=== PATIENT | female | born 1990 | race American Indian/Alaskan Native ===

== ENCOUNTER 2016-08-28 15:20 | Emergency (ER) | payer OTHER ==
[2016-08-28 15:33] VITALS: BP 122/92
[2016-08-28] MEDS ORDERED: Sodium Chloride 0.9% 10 ML Syringe FLUSH PRN (16:13)
[2016-08-28] MEDS ORDERED: Ondansetron 4 MG/2 ML SDV IVPUSH ONE (16:14)
[2016-08-28] MEDS ORDERED: Sodium Chloride 0.9% 1,000 ML IV ONE (16:14)
--- NOTE | 2016-08-28 16:26 | EDM.PDOC ---
<Rajwinder Hidalgo - Last Filed: 08/28/16 19:55> ED HPI GENERAL MEDICAL PROBLEM - General Chief Complaint: Gastrointestinal Problem Stated Complaint: NAUSEA AND VOMITING X 10 DAYS Time Seen by Provider: 08/28/16 16:00 Source of Information: Reports: Patient History Limitations: Reports: No Limitations - History of Present Illness INITIAL COMMENTS - FREE TEXT/NARRATIVE: Jocy is a 26 year old female who presents today with complaints of nausea and vomiting X 10 days. Her symptoms have been gradually getting worse. She has not been able to keep anything down for the past 6 days. When her symptoms began, she developed a cough with productive sputum. These symptoms have been improving gradually, but the nausea and vomiting is continuous. She has dizziness with position changes. Associated symptoms include chills and shortness of breath. Denies fever, night sweats, diarrhea. She has not had any recent travel or close contacts who have been sick. She reports her last menstrual period was "maybe sometime in July" but unsure of the exact date. - Related Data Allergies Allergy/AdvReac Type Severity Reaction Status Date / Time No Known Allergies Allergy Verified 08/28/16 15:32 Home Meds: Home Meds Acetaminophen/HYDROcodone [[place] 325-5 MG] 1 tab PO Q8H 08/28/16 [History] Cyclobenzaprine [Flexeril] 5 mg PO TID 08/28/16 [History] Doxylamine/Pyridoxine HCl [Diclegis Dr 10-10 mg Tablet] 1 each PO ASDIRECTED # 30 tablet. 08/28/16 [Rx] Ferrous Sulfate [Iron] 325 mg PO DAILY 08/28/16 [History] Gabapentin [Neurontin] 600 mg PO TID 08/28/16 [History] ED ROS GENERAL - Review of Systems Review Of Systems: See Below Constitutional: Reports: Chills, Weakness. Denies: Fever HEENT: Reports: No Symptoms Respiratory: Reports: Shortness of Breath Cardiovascular: Denies: Lightheadedness GI/Abdominal: Reports: Abdominal Pain, Mucous in Stool. Denies: Bloody Stool, Diarrhea, Hematemesis, Hematochezia : Denies: Dysuria, Flank Pain, Frequency, Urgency Musculoskeletal: Denies: Neck Pain Skin: Reports: No Symptoms Neurological: Reports: Dizziness (dizziness with position changes ) ED EXAM, GI/ABD - Physical Exam Exam Limited By: No Limitations General Appearance: Alert Ears: Normal TMs Throat/Mouth: Normal Oropharynx Head: Normocephalic Neck: Supple Respiratory/Chest: Lungs Clear, Normal Breath Sounds Cardiovascular: Regular Rate, Rhythm, No Edema GI/Abdominal: Tenderness (tenderness upon palpation to mid-upper gastric area ) Neurological: Alert, Oriented, CN II-XII Intact Psychiatric: Normal Affect Skin Exam: Intact, Diaphoretic Lymphatic: No Adenopathy Course - Vital Signs Last Recorded V/S: Last Vital Signs Temp 36.6 C 08/28/16 15:30 Pulse 74 08/28/16 15:30 Resp 19 08/28/16 15:30 BP 122/92 H 08/28/16 15:30 Pulse Ox 99 08/28/16 15:30 - Orders/Labs/Meds Orders: Active Orders 24 hr Category Date Time Status EKG Documentation Completion [RC] STAT Care 08/28/16 16:13 Active Orthostatic Vital Signs [RC] ASDIRECTED Care 08/28/16 16:37 Active Peripheral IV Care [RC] . DIRECTED Care 08/28/16 16:14 Active OB Transvaginal [US] Stat Exams 08/28/16 17:50 Taken Peripheral IV Insertion Adult [OM.PC] Routine Oth 08/28/16 16:13 Ordered Labs: Laboratory Tests 08/28/16 08/28/16 08/28/16 Range/Units 15:54 15:54 15:54 WBC 9.90 (3.98-10.04) K/mm3 RBC 4.86 (3.98-5.22) M/mm3 Hgb 13.1 (11.2-15.7) gm/L Hct 38.9 (34.1-44.9) % MCV 80.0 (79.4-94.8) fl MCH 27.0 (25.6-32.2) pg MCHC 33.7 (32.2-35.5) g/dl RDW Std Deviation 40.4 (36.4-46.3) fL Plt Count 365 (182-369) K/mm3 MPV 9.9 (9.4-12.3) fl Neutrophils % (Manual) 92 H (40-60) % Band Neutrophils % 0 (0-10) % Lymphocytes % (Manual) 5 L (20-40) % Atypical Lymphs % 0 % Monocytes % (Manual) 3 (2-10) % Eosinophils % (Manual) 0 L (0.7-5.8) % Basophils % (Manual) 0 L (0.1-1.2) Platelet Estimate Adequate RBC Morph Comment Normal Sodium 137 (136-145) mEq/L Potassium 3.8 (3.5-5.1) mEq/L Chloride 102 (98-107) mEq/L Carbon Dioxide 22 (21-32) mEq/L Anion Gap 16.8 H (5-15) BUN 8 (7-18) mg/dL Creatinine 0.8 (0.55-1.02) mg/dL Est Cr Clr Drug Dosing 95.89 mL/min Estimated GFR (MDRD) > 60 (>60) mL/min BUN/Creatinine Ratio 10.0 L (14-18) Glucose 99 (74-106) mg/dL Calcium 9.6 (8.5-10.1) mg/dL Total Bilirubin 0.6 (0.2-1.0) mg/dL AST 15 (15-37) U/L ALT 19 (14-59) U/L Alkaline Phosphatase 63 (46-116) U/L C-Reactive Protein 4.3 H* (<1.0) mg/dL Total Protein 9.2 H (6.4-8.2) g/dl Albumin 3.7 (3.4-5.0) g/dl Globulin 5.5 gm/dL Albumin/Globulin Ratio 0.7 L (1-2) HCG, Quant 348299.0 mIU/mL Urine Color (Yellow) Urine Appearance (Clear) Urine pH (5.0-8.0) Ur Specific [place] (1.005-1.030) Urine Protein (Negative) Urine Glucose (UA) (Negative) Urine Ketones (Negative) Urine Occult Blood (Negative) Urine Nitrite (Negative) Urine Bilirubin (Negative) Urine Urobilinogen (0.2-1.0) Ur Leukocyte Esterase (Negative) Urine RBC (0-5) /hpf Urine WBC (0-5) /hpf Ur Epithelial Cells (0-5) /hpf Urine Bacteria (FEW) /hpf Urine Mucus (FEW) /hpf 08/28/ Range/Units 17:32 WBC (3.98-10.04) K/mm3 RBC (3.98-5.22) M/mm3 Hgb (11.2-15.7) gm/L Hct (34.1-44.9) % MCV (79.4-94.8) fl MCH (25.6-32.2) pg MCHC (32.2-35.5) g/dl RDW Std Deviation (36.4-46.3) fL Plt Count (182-369) K/mm3 MPV (9.4-12.3) fl Neutrophils % (Manual) (40-60) % Band Neutrophils % (0-10) % Lymphocytes % (Manual) (20-40) % Atypical Lymphs % % Monocytes % (Manual) (2-10) % Eosinophils % (Manual) (0.7-5.8) % Basophils % (Manual) (0.1-1.2) Platelet Estimate RBC Morph Comment Sodium (136-145) mEq/L Potassium (3.5-5.1) mEq/L Chloride (98-107) mEq/L Carbon Dioxide (21-32) mEq/L Anion Gap (5-15) BUN (7-18) mg/dL Creatinine (0.55-1.02) mg/dL Est Cr Clr Drug Dosing mL/min Estimated GFR (MDRD) (>60) mL/min BUN/Creatinine Ratio (14-18) Glucose (74-106) mg/dL Calcium (8.5-10.1) mg/dL Total Bilirubin (0.2-1.0) mg/dL AST (15-37) U/L ALT (14-59) U/L Alkaline Phosphatase (46-116) U/L C-Reactive Protein (<1.0) mg/dL Total Protein (6.4-8.2) g/dl Albumin (3.4-5.0) g/dl Globulin gm/dL Albumin/Globulin Ratio (1-2) HCG, Quant mIU/mL Urine Color Yellow (Yellow) Urine Appearance Slt cloudy H (Clear) Urine pH 7.0 (5.0-8.0) Ur Specific [place] 1.020 (1.005-1.030) Urine Protein 1+ H (Negative) Urine Glucose (UA) Negative (Negative) Urine Ketones 3+ H (Negative) Urine Occult Blood Negative (Negative) Urine Nitrite Negative (Negative) Urine Bilirubin 1+ H (Negative) Urine Urobilinogen 2.0 H (0.2-1.0) Ur Leukocyte Esterase Negative (Negative) Urine RBC 0-5 (0-5) /hpf Urine WBC 0-5 (0-5) /hpf Ur Epithelial Cells 5-10 H (0-5) /hpf Urine Bacteria Moderate H (FEW) /hpf Urine Mucus Moderate H (FEW) /hpf Meds: Medications Discontinued Medications Generic Name Dose Route Start Last Admin Trade Name Freq PRN Reason Stop Dose Admin Diphenhydramine HCl 25 mg 08/28/16 20:47 08/28/16 20:52 Benadryl IVPUSH 08/28/16 20:48 25 mg ONETIME ONE Administration Sodium Chloride 1,000 mls @ 999 mls/hr 08/28/16 16:14 08/28/16 16:23 Normal Saline IV 08/28/16 17:14 999 mls/hr ONETIME ONE Administration Metoclopramide HCl 5 mg 08/28/16 20:47 08/28/16 20:52 Reglan IVPUSH 08/28/16 20:48 5 mg ONETIME ONE Administration Ondansetron HCl 4 mg 08/28/16 16:14 08/28/16 16:24 Zofran IVPUSH 08/28/16 16:15 4 mg ONETIME ONE Administration Sodium Chloride 10 ml 08/28/16 16:13 08/28/16 16:24 Saline Flush FLUSH 10 ml ASDIRECTED PRN Administration Keep Vein Open Departure - Departure Disposition: Home, Self-Care 01 Clinical Impression: Nausea and vomiting during , - Discharge Information Prescriptions: Doxylamine/Pyridoxine HCl [Irene Feliz 10-10 mg Tablet] 1 each PO ASDIRECTED # 30 tablet. Instructions: Care, First Trimester of Referrals: Traci Zavaleta NP [Primary Care Provider] - Arden Archer MD [Physician] - Forms: ED Department Discharge Additional Instructions: Drink 1/2 your body weight in ounces of fluids a day. Take OTC medications from provided list as needed. No aspirin, ibuprofen, advil , NSAIDs, etc during . Take the diclegis as prescribed. 2 tabs PO at hour of sleep. If ausea persist after 2 days may increase to 1 tab PO qam and 2 tabs PO qhs Follow-up with ob in the next 1-[address] Perez or Dr[address] Archer. Call [phone] to schedule with one of them. Please return to the ER should your symptoms change or worsen. - My Orders Last 24 Hours: My Active Orders 08/28/16 16:13 EKG Documentation Completion [RC] STAT Peripheral IV Insertion Adult [OM.PC] Routine 08/28/16 16:14 Peripheral IV Care [RC] . DIRECTED 08/28/16 16:37 Orthostatic Vital Signs [RC] ASDIRECTED 08/28/16 17:50 OB Transvaginal [US] Stat - Assessment/Plan Last 24 Hours: My Active Orders 08/28/16 16:13 EKG Documentation Completion [RC] STAT Peripheral IV Insertion Adult [OM.PC] Routine 08/28/16 16:14 Peripheral IV Care [RC] . DIRECTED 08/28/16 16:37 Orthostatic Vital Signs [RC] ASDIRECTED 08/28/16 17:50 OB Transvaginal [US] Stat <Crystal Altman - Last Filed: 08/29/16 10:06> ED HPI GENERAL MEDICAL PROBLEM - General History Limitations: Reports: No Limitations - History of Present Illness INITIAL COMMENTS - FREE TEXT/NARRATIVE: I agree with the HPI as documented by CHICO Purdy student. I have interviewed the patient. 26 year old female reports severe nausea and vomiting for 10 days. Current symptoms include chills, dizziness, nausea, decreased energy, chest pain and shortness of breath. Patient reports 7 days ago she became ill with cold symptoms. Has tried OTC cold medications. Reports a nonproductive cough. Attributes the chest pain and shortness of breath to the could symptoms and heartburn. Patient reports LMP was the beginning of July. States there is a chance of . She is a . Patient has a history of back problems and RA. She currently sees pain management and ortho for back pain. 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: Musculoskeletal History: Reports: Back Pain, Chronic, RA Neurological History: Reports: Migraines Hematologic History: Reports: Iron Deficiency - Past Surgical History Musculoskeletal Surgical History: Reports: None Social & Family History - Tobacco Use Smoking Status *Q: Former Smoker Used Tobacco, but Quit: Yes Month Tobacco Last Used: 5 years ago Second Hand Smoke Exposure: No - Caffeine Use Caffeine Use: Reports: Coffee, Tea - Recreational Drug Use Recreational Drug Use: No ED ROS GENERAL - Review of Systems Review Of Systems: See Below Constitutional: Reports: Chills, Fatigue Respiratory: Reports: Shortness of Breath, Cough Cardiovascular: Reports: Chest Pain GI/Abdominal: Reports: Nausea, Vomiting : Reports: No Symptoms Neurological: Reports: Dizziness. Denies: Syncope ED EXAM, GI/ABD - Physical Exam Exam: See Below Exam Limited By: No Limitations General Appearance: Alert, WD/WN, No Apparent Distress Throat/Mouth: Normal Inspection, Normal Lips, Normal Voice, No Airway Compromise Respiratory/Chest: No Respiratory Distress, Lungs Clear, Normal Breath Sounds Cardiovascular: Normal Peripheral Pulses, Regular Rate, Rhythm, No Murmur GI/Abdominal: Normal Bowel Sounds, Soft Neurological: Alert, Oriented, Normal Cognition Psychiatric: Normal Affect, Normal Mood Skin Exam: Warm, Dry, Normal Color EKG INTERPRETATION EKG Date: 08/28/16 Time: 16:20 Rhythm: Other (sinus arrhythmia) Rate (Beats/Min): 75 [place]: Normal P-Wave: Present QRS: Normal ST-T: Normal QT: Normal EKG Interpretation Comments: sinus arrhythmia at 75 bpm. Reviewed by myself and Dr. Martinez. Course - Orders/Labs/Meds Labs: Laboratory Tests 08/28/16 08/28/16 08/28/16 Range/Units 15:54 15:54 15:54 WBC 9.90 (3.98-10.04) K/mm3 RBC 4.86 (3.98-5.22) M/mm3 Hgb 13.1 (11.2-15.7) gm/L Hct 38.9 (34.1-44.9) % MCV 80.0 (79.4-94.8) fl MCH 27.0 (25.6-32.2) pg MCHC 33.7 (32.2-35.5) g/dl RDW Std Deviation 40.4 (36.4-46.3) fL Plt Count 365 (182-369) K/mm3 MPV 9.9 (9.4-12.3) fl Neutrophils % (Manual) 92 H (40-60) % Band Neutrophils % 0 (0-10) % Lymphocytes % (Manual) 5 L (20-40) % Atypical Lymphs % 0 % Monocytes % (Manual) 3 (2-10) % Eosinophils % (Manual) 0 L (0.7-5.8) % Basophils % (Manual) 0 L (0.1-1.2) Platelet Estimate Adequate RBC Morph Comment Normal Sodium 137 (136-145) mEq/L Potassium 3.8 (3.5-5.1) mEq/L Chloride 102 (98-107) mEq/L Carbon Dioxide 22 (21-32) mEq/L Anion Gap 16.8 H (5-15) BUN 8 (7-18) mg/dL Creatinine 0.8 (0.55-1.02) mg/dL Est Cr Clr Drug Dosing 95.89 mL/min Estimated GFR (MDRD) > 60 (>60) mL/min BUN/Creatinine Ratio 10.0 L (14-18) Glucose 99 (74-106) mg/dL Calcium 9.6 (8.5-10.1) mg/dL Total Bilirubin 0.6 (0.2-1.0) mg/dL AST 15 (15-37) U/L ALT 19 (14-59) U/L Alkaline Phosphatase 63 (46-116) U/L C-Reactive Protein 4.3 H* (<1.0) mg/dL Total Protein 9.2 H (6.4-8.2) g/dl Albumin 3.7 (3.4-5.0) g/dl Globulin 5.5 gm/dL Albumin/Globulin Ratio 0.7 L (1-2) HCG, Quant 891916.0 mIU/mL Urine Color (Yellow) Urine Appearance (Clear) Urine pH (5.0-8.0) Ur Specific [place] (1.005-1.030) Urine Protein (Negative) Urine Glucose (UA) (Negative) Urine Ketones (Negative) Urine Occult Blood (Negative) Urine Nitrite (Negative) Urine Bilirubin (Negative) Urine Urobilinogen (0.2-1.0) Ur Leukocyte Esterase (Negative) Urine RBC (0-5) /hpf Urine WBC (0-5) /hpf Ur Epithelial Cells (0-5) /hpf Urine Bacteria (FEW) /hpf Urine Mucus (FEW) /hpf 08/28/ Range/Units 17:32 WBC (3.98-10.04) K/mm3 RBC (3.98-5.22) M/mm3 Hgb (11.2-15.7) gm/L Hct (34.1-44.9) % MCV (79.4-94.8) fl MCH (25.6-32.2) pg MCHC (32.2-35.5) g/dl RDW Std Deviation (36.4-46.3) fL Plt Count (182-369) K/mm3 MPV (9.4-12.3) fl Neutrophils % (Manual) (40-60) % Band Neutrophils % (0-10) % Lymphocytes % (Manual) (20-40) % Atypical Lymphs % % Monocytes % (Manual) (2-10) % Eosinophils % (Manual) (0.7-5.8) % Basophils % (Manual) (0.1-1.2) Platelet Estimate RBC Morph Comment Sodium (136-145) mEq/L Potassium (3.5-5.1) mEq/L Chloride (98-107) mEq/L Carbon Dioxide (21-32) mEq/L Anion Gap (5-15) BUN (7-18) mg/dL Creatinine (0.55-1.02) mg/dL Est Cr Clr Drug Dosing mL/min Estimated GFR (MDRD) (>60) mL/min BUN/Creatinine Ratio (14-18) Glucose (74-106) mg/dL Calcium (8.5-10.1) mg/dL Total Bilirubin (0.2-1.0) mg/dL AST (15-37) U/L ALT (14-59) U/L Alkaline Phosphatase (46-116) U/L C-Reactive Protein (<1.0) mg/dL Total Protein (6.4-8.2) g/dl Albumin (3.4-5.0) g/dl Globulin gm/dL Albumin/Globulin Ratio (1-2) HCG, Quant mIU/mL Urine Color Yellow (Yellow) Urine Appearance Slt cloudy H (Clear) Urine pH 7.0 (5.0-8.0) Ur Specific [place] 1.020 (1.005-1.030) Urine Protein 1+ H (Negative) Urine Glucose (UA) Negative (Negative) Urine Ketones 3+ H (Negative) Urine Occult Blood Negative (Negative) Urine Nitrite Negative (Negative) Urine Bilirubin 1+ H (Negative) Urine Urobilinogen 2.0 H (0.2-1.0) Ur Leukocyte Esterase Negative (Negative) Urine RBC 0-5 (0-5) /hpf Urine WBC 0-5 (0-5) /hpf Ur Epithelial Cells 5-10 H (0-5) /hpf Urine Bacteria Moderate H (FEW) /hpf Urine Mucus Moderate H (FEW) /hpf - Radiology Interpretation Free Text/Narrative:: transvaginal ultrasound impression per Dr. Watt: 6 week, 6 day single live intrauterine , EDC 04/17/2017 No subchorionic hemorrhage no molar enlarged ovaries bilaterally 1.5 x 1.2 x1 cm right ovarian corpus luteum cyst. 7.8 x 7 x 3.6 cm left ovarian complex cyst with a 1.5 x 0.7 cm soft tissue mural nodule. Recommend follow-up ultrasound thich walled 4.5 x 5 x 8 cm cystic structure in the posteriro cul-de-sac. Recommend follow-up utrasound and if necessary pelvic MRI correlation. - Re-Assessments/Exams Free Text/Narrative Re-Assessment/Exam: 08/28/16 16:10 Plan will be to give zofran for nausea, fluids and labs. Will check test prior to chest xray. 08/28/16 17:50 Labs returned. wbc is 9.90, hgb is 13.1 and plts are 365 sodium is 137, potassium is 3.8 and chloride is 102. anion gap is 16.8 hcg is [id number] Will defer chest xray at this time. The patient is . Lungs are clear. white count is normal. Will obtain and ultrasound to establish dates and rule out a molar due to the severe n/v and high hcg 08/28/16 20:54 I reviewed the ultrasound report with the patient. Nausea returning. Will give reglan and benadryl prior to discharge. Discharge instructions as documented. Departure - Departure Time of Disposition: 20:55 Condition: Good
[2016-08-28] MEDS ORDERED: Metoclopramide 10 MG/2 ML SDV IVPUSH ONE (20:47)
[2016-08-28] MEDS ORDERED: diphenhydrAMINE 50 MG/ML SDV IVPUSH ONE (20:47)
--- NOTE | 2016-08-30 15:09 | US ---
First trimester obstetrical ultrasound: Multiple real-time images were obtained transabdominally and transvaginally. Comparison: No previous obstetrical ultrasound. Dates: LMP: ? Current ultrasound: KRISTIN 04/17/17, gestational age 6 weeks 6 days Single intrauterine gestation is seen. Amniotic fluid volume is within normal limits. Yolk sac and embryo are identified. No subchorionic hemorrhage is seen. No free fluid is seen. 7.8 cm cyst is noted within the left ovary. This shows small soft tissue nodule along the wall. Right ovary appears within normal limits. Additional thick walled cyst is seen within the cul-de-sac measuring 5.8 cm. Measurements: Gestational sac: 2.62 cm - 7 weeks 4 days [employer]-rump length: 0.87 cm - 6 weeks 4 days Heart rate: 169 BPM Impression: 1. 7.8 cm slightly complicated cyst within the maternal left ovary. Additional thick walled cyst within the cul-de-sac measuring 5.8 cm. Both these cysts are nonspecific regarding etiology. 2. Single intrauterine gestation. Dates as noted above. 3. No additional abnormality is seen. Diagnostic code #9 I agree with preliminary report issued by [email or web address] ([facility] report finalized on 08/28/16, 8:54 PM Central Time)
== END 2016-08-28 21:20 | disposition home or self-care (01) ==
LOC: JD.ED 15:20
DX: O21.9 Vomiting of pregnancy, unspecified (principal); Z79.899 Other long term (current) drug therapy; Z3A.01 Less than 8 weeks gestation of pregnancy
CPT/HCPCS: 36415; 76817; 80053; 81001; 84702; 85025; 86140; 93005; 96361; 96374; 96375; 99285; J1200; J2405; J2765; J7040; J7050; 99284

== ENCOUNTER 2017-04-14 12:26 | Inpatient (IN) | payer OTHER ==
[2017-04-14] MEDS ORDERED: Sodium Chloride 0.9% 10 ML Syringe FLUSH PRN (12:49)
[2017-04-14] MEDS ORDERED: Ampicillin 2 GM in Sodium Chloride 0.9% 100 ML IV ONE (12:49)
[2017-04-14] MEDS ORDERED: Nalbuphine 20 MG/1 ML Amp IVPUSH PRN (12:49)
[2017-04-14] MEDS: Lactated Ringers 1,000 ML IV SCH ×2 (13:00→15:41)
[2017-04-14] MEDS ORDERED: Oxytocin/Lactated Ringers 10 UNIT/1,000 ML BAG IV SCH ×2 (13:00)
--- NOTE | 2017-04-14 13:53 | PCM.LDHP ---
L&D History of Present Illness - General Date of Service: 04/14/17 Admit Problem/Dx: Patient Status Order with Admit Dx/Problem 04/14/17 12:30 Patient Status [ADT] Routine Admission Diagnosis/Problem Admission Diagnosis/Problem - History of Present Illness Introduction:: 27 year old here with SROM. Minimal contractions. Improves with: Reports: None Worsens with: Reports: None Associated Symptoms: Reports: N - Related Data Allergies/Adverse Reactions: Allergies Allergy/AdvReac Type Severity Reaction Status Date / Time No Known Allergies Allergy Verified 08/28/16 15:32 Home Medications: Home Meds Acetaminophen/HYDROcodone [[place] 325-5 MG] 1 tab PO Q8H 08/28/16 [History] Cyclobenzaprine [Flexeril] 5 mg PO TID 08/28/16 [History] Doxylamine/Pyridoxine HCl [Diclegis Dr 10-10 mg Tablet] 1 each PO ASDIRECTED # 30 tablet. 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: Musculoskeletal History: Reports: Back Pain, Chronic, RA Neurological History: Reports: Migraines Hematologic History: Reports: Iron Deficiency - Past Surgical History Musculoskeletal Surgical History: Reports: None Social & Family History - Tobacco Use Smoking Status *Q: Former Smoker Used Tobacco, but Quit: Yes Month Tobacco Last Used: 5 years ago Second Hand Smoke Exposure: No - Caffeine Use Caffeine Use: Reports: Coffee, Tea - Recreational Drug Use Recreational Drug Use: No H&P Review of Systems - Review of Systems: Review Of Systems: See Below General: Reports: No Symptoms HEENT: Reports: No Symptoms Pulmonary: Reports: No Symptoms Cardiovascular: Reports: No Symptoms Gastrointestinal: Reports: No Symptoms Genitourinary: Reports: No Symptoms Musculoskeletal: Reports: No Symptoms Skin: Reports: No Symptoms Psychiatric: Reports: No Symptoms Neurological: Reports: No Symptoms Hematologic/Lymphatic: Reports: No Symptoms Immunologic: Reports: No Symptoms L&D Exam - Exam Exam: See Below - Vital Signs Weight: 93.894 kg - OB Specific Contraction Intensity: Moderate to Strong Movement: Active Heart Tones: Present Heart Rate (FHR) Variability: Moderate (6-25 bmp) Presentation: Vertex - Frank Score Frank Score Cervix Position: Midposition Frank Score Consistency: Soft Frank Score Effacement: 31-50% Frank Score Dilation: 1-2 cm Frank Score 's Station: -2 Frank Score Total: 6 - Exam General: Alert, Oriented HEENT: PERRLA, Conjunctiva Clear, EACs Clear, EOMI, Hearing Intact, Mucosa Moist & [place], Nares Patent, Normal Nasal Septum, Posterior Pharynx Clear, TMs Clear Neck: Supple, Trachea Midline Lungs: Clear to Auscultation, Normal Respiratory Effort Cardiovascular: Regular Rate, Regular Rhythm GI/Abdominal Exam: Normal Bowel Sounds, Soft, Non-Tender, No Organomegaly, No Distention, No Abnormal Bruit, No Mass, Pelvis Stable Genitourinary: Normal external exam, Normal bimanual exam, Normal speculum exam Back Exam: Normal Inspection, Full Range of Motion Extremities: Normal Inspection, Normal Range of Motion, Non-Tender, No Pedal Edema, Normal Capillary Refill Skin: Warm, Dry, Intact Neurological: Cranial Nerves Intact, Reflexes Equal Bilateral Psychiatric: Alert, Normal Affect, Normal Mood - Patient Data Lab Results Last 24 hrs: Laboratory Results - last 24 hr 04/14/17 Range/Units 13:16 WBC 10.59 H (3.98-10.04) K/mm3 RBC 3.98 (3.98-5.22) M/mm3 Hgb 8.8 L (11.2-15.7) gm/L Hct 28.2 L (34.1-44.9) % MCV 70.9 L (79.4-94.8) fl MCH 22.1 L (25.6-32.2) pg MCHC 31.2 L (32.2-35.5) g/dl RDW Std Deviation 44.5 (36.4-46.3) fL Plt Count 324 (182-369) K/mm3 MPV 9.8 (9.4-12.3) fl Neut % (Auto) 81.6 H (34.0-71.1) % Lymph % (Auto) 10.7 L (19.3-51.7) % [place] % (Auto) 6.8 (4.7-12.5) % Eos % (Auto) 0.4 L (0.7-5.8) Baso % (Auto) 0.2 (0.1-1.2) % Neut # (Auto) 8.65 H (1.56-6.13) K/mm3 Lymph # (Auto) 1.13 L (1.18-3.74) K/mm3 [place] # (Auto) 0.72 H (0.24-0.36) K/mm3 Eos # (Auto) 0.04 (0.04-0.36) K/mm3 Baso # (Auto) 0.02 (0.01-0.08) K/mm3 Result Diagrams: 04/14/17 13:16 Problem List Initiated/Reviewed/Updated: Yes Orders Last 24hrs: Active Orders 24 hr Category Date Time Status Patient Status [ADT] Routine ADT 04/14/17 12:30 Active Activity as Tolerated [RC] PFP Care 04/14/17 12:49 Active Communication Order [RC] ASDIRECTED Care 04/14/17 12:49 Active Heart Tones [RC] ASDIRECTED Care 04/14/17 12:50 Active Notify Provider [RC] PFP Care 04/14/17 12:49 Active Notify Provider [RC] PRN Care 04/14/17 12:49 Active Peripheral IV Care [RC] . DIRECTED Care 04/14/17 12:50 Active Pump Management, Intrathecal [RC] ASDIRECTED Care 04/14/17 12:52 Active Vital Signs [RC] PER UNIT ROUTINE Care 04/14/17 12:49 Active Regular Diet [DIET] Diet 04/14/17 Lunch Active CBC WITH AUTO DIFF [HEME] Stat Lab 04/14/17 13:16 Results Ampicillin 1 gm Med 04/14/17 17:00 Active Sodium Chloride 0.9% [Normal Saline] 100 ml IV Q4H Lactated Ringers [Ringers, Lactated] 1,000 ml Med 04/14/17 13:00 Active IV ASDIRECTED Nalbuphine [Nubain] Med 04/14/17 12:49 Active 10 mg IVPUSH Q2H PRN Oxytocin/Lactated Ringers [Pitocin in LR 10 Units/1,000 Med 04/14/17 13:00 Active ML] 10 unit in 1,000 ml IV .CONTINUOUS Oxytocin/Lactated Ringers [Pitocin in LR 10 Units/1,000 Med 04/14/17 13:00 Active ML] 10 unit in 1,000 ml IV TITRATE Sodium Chloride 0.9% [Saline Flush] Med 04/14/17 12:49 Active 10 ml FLUSH ASDIRECTED PRN Electronic Heart Tones Ext w TOCO [WOMSER] Oth 04/14/17 12:49 Ordered Routine Electronic Heart Tones Internal [WOMSER] Per Unit Oth 04/14/17 12:49 Ordered Routine Peripheral IV Insertion Adult [OM.PC] Routine Oth 04/14/17 12:49 Ordered Resuscitation Status Routine Resus Stat 04/14/17 12:49 Ordered Medication Orders Ampicillin Sodium 1 gm/ Sodium (Chloride) 100 mls @ 200 mls/hr IV Q4H TANI Lactated Ringer's (Ringers, Lactated) 1,000 mls @ 100 mls/hr IV ASDIRECTED TANI Oxytocin/Lactated Ringer's (Pitocin In Lr 10 Units/1,000 Ml) 10 unit in 1,000 mls @ 12 mls/hr IV TITRATE TANI; 2 MUNITS/MIN PRN Reason: Protocol Oxytocin/Lactated Ringer's (Pitocin In Lr 10 Units/1,000 Ml) 10 unit in 1,000 mls @ 500 mls/hr IV .CONTINUOUS TANI Nalbuphine HCl (Nubain) 10 mg IVPUSH Q2H PRN PRN Reason: Pain (moderate 4-6) Sodium Chloride (Saline Flush) 10 ml FLUSH ASDIRECTED PRN PRN Reason: Keep Vein Open Assessment/Plan Comment:: Term SROM Augment as needed with pitocin. Anticipate .
[2017-04-14] MEDS ORDERED: ePHEDrine 50 MG/ML SDV IVPUSH PRN (14:38)
[2017-04-14] MEDS ORDERED: Ondansetron 4 MG/2 ML SDV IVPUSH PRN (14:38)
[2017-04-14] MEDS ORDERED: fentaNYL 100 MCG/2 ML SDV EPIDUR PRN (14:38)
--- NOTE | 2017-04-14 14:42 | PCM.PREANE ---
Preanesthetic Assessment - Anesthesia/Transfusion/Family Hx Anesthesia History: Prior Anesthesia Without Reaction Family History of Anesthesia Reaction: No Transfusion History: No Prior Transfusion(s) Intubation History: Unknown - Review of Systems Pulmonary: No Symptoms (quit smoking 5 years ago) Cardiovascular: Lightheadedness (postional changes) Gastrointestinal: No Symptoms (GERD), Constipation Neurological: No Symptoms (Chronic back pain/History of rheumatoid arthritis), Headache (Migraines) Other: Reports: None - Physical Assessment NPO Status Date: 04/14/17 NPO Status Time: 09:30 Pulse: 80 O2 Sat by Pulse Oximetry: 100 Respiratory Rate: 14 Blood Pressure: 119/77 Temperature: 36.6 C Vital Signs: Last Vital Signs Temp 36.6 C 04/14/17 12:49 Pulse 80 04/14/17 13:50 Resp 14 04/14/17 12:49 BP 119/77 04/14/17 13:50 Pulse Ox 100 04/14/17 12:49 Height: 1.7 m Weight: 93.894 kg ASA Class: 2 Mental Status: Alert & Oriented x3 Airway Class: Mallampati = 3 Dentition: Reports: Normal Dentition, Caries Thyro-Mental Finger Breadths: 3 Mouth Opening Finger Breadths: 3 ROM/Head Extension: Full Lungs: Clear to Auscultation, Normal Respiratory Effort Cardiovascular: Regular Rate, Regular Rhythm, No Murmurs - Lab Values: Laboratory Last Values WBC 10.59 K/mm3 (3.98-10.04) H 04/14/17 13:16 RBC 3.98 M/mm3 (3.98-5.22) 04/14/17 13:16 Hgb 8.8 gm/L (11.2-15.7) L 04/14/17 13:16 Hct 28.2 % (34.1-44.9) L 04/14/17 13:16 MCV 70.9 fl (79.4-94.8) L 04/14/17 13:16 MCH 22.1 pg (25.6-32.2) L 04/14/17 13:16 MCHC 31.2 g/dl (32.2-35.5) L 04/14/17 13:16 RDW Std Deviation 44.5 fL (36.4-46.3) 04/14/17 13:16 Plt Count 324 K/mm3 (182-369) 04/14/17 13:16 MPV 9.8 fl (9.4-12.3) 04/14/17 13:16 Neut % (Auto) 81.6 % (34.0-71.1) H 04/14/17 13:16 Lymph % (Auto) 10.7 % (19.3-51.7) L 04/14/17 13:16 [place] % (Auto) 6.8 % (4.7-12.5) 04/14/17 13:16 Eos % (Auto) 0.4 (0.7-5.8) L 04/14/17 13:16 Baso % (Auto) 0.2 % (0.1-1.2) 04/14/17 13:16 Neut # (Auto) 8.65 K/mm3 (1.56-6.13) H 04/14/17 13:16 Lymph # (Auto) 1.13 K/mm3 (1.18-3.74) L 04/14/17 13:16 [place] # (Auto) 0.72 K/mm3 (0.24-0.36) H 04/14/17 13:16 Eos # (Auto) 0.04 K/mm3 (0.04-0.36) 04/14/17 13:16 Baso # (Auto) 0.02 K/mm3 (0.01-0.08) 04/14/17 13:16 Manual Slide Review Abnormal smear 04/14/17 13:16 Above labs reviewed and noted and within acceptable ranges to proceed with epidural. 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: Musculoskeletal History: Reports: Back Pain, Chronic, RA Neurological History: Reports: Migraines Hematologic History: Reports: Iron Deficiency - Past Surgical History Musculoskeletal Surgical History: Reports: None - SUBSTANCE USE Smoking Status *Q: Former Smoker Tobacco Use Within Last Twelve Months: No Second Hand Smoke Exposure: No Recreational Drug Use History: No - HOME MEDS Home Medications: Home Meds Acetaminophen/HYDROcodone [[place] 325-5 MG] 1 tab PO Q8H 08/28/16 [History] Cyclobenzaprine [Flexeril] 5 mg PO TID 08/28/16 [History] Doxylamine/Pyridoxine HCl [Irene Feliz 10-10 mg Tablet] 1 each PO ASDIRECTED # 30 tablet. 08/28/16 [Rx] Ferrous Sulfate [Iron] 325 mg PO DAILY 08/28/16 [History] Gabapentin [Neurontin] 600 mg PO TID 08/28/16 [History] - CURRENT (IN HOUSE) MEDS Current Meds: Current Medications Ephedrine Sulfate (Ephedrine Sulfate) 5 mg IVPUSH ASDIRECTED PRN PRN Reason: Hypotension Fentanyl (Sublimaze) 100 mcg EPIDUR Q3H PRN PRN Reason: Pain Fentanyl/Bupivacaine HCl (Fentanyl/Bupivacaine/Ns 2 Mcg-0.125% 100 Ml) 100 ml EPIDUR ASDIRECTED TANI Ampicillin Sodium 1 gm/ Sodium (Chloride) 100 mls @ 200 mls/hr IV Q4H TANI Lactated Ringer's (Ringers, Lactated) 1,000 mls @ 100 mls/hr IV ASDIRECTED TANI Oxytocin/Lactated Ringer's (Pitocin In Lr 10 Units/1,000 Ml) 10 unit in 1,000 mls @ 12 mls/hr IV TITRATE TANI; 2 MUNITS/MIN PRN Reason: Protocol Oxytocin/Lactated Ringer's (Pitocin In Lr 10 Units/1,000 Ml) 10 unit in 1,000 mls @ 500 mls/hr IV .CONTINUOUS TANI Nalbuphine HCl (Nubain) 10 mg IVPUSH Q2H PRN PRN Reason: Pain (moderate 4-6) Ondansetron HCl (Zofran) 4 mg IVPUSH ONETIME PRN PRN Reason: Nausea/Vomiting Sodium Chloride (Saline Flush) 10 ml FLUSH ASDIRECTED PRN PRN Reason: Keep Vein Open Discontinued Medications Ampicillin Sodium 2 gm/ Sodium (Chloride) 100 mls @ 200 mls/hr IV ONETIME ONE Stop: 04/14/17 13:18
[2017-04-14] MEDS ORDERED: Bupivacaine/fentaNYL/NS 100 ML Bag EPIDUR SCH (14:45)
[2017-04-14] MEDS ORDERED: Ampicillin 1 GM in Sodium Chloride 0.9% 100 ML IV SCH (17:00)
[2017-04-14] MEDS ORDERED: Benzocaine/Menthol 20%-0.5% Spray 56 GM Canister TOP PRN (19:31)
[2017-04-14] MEDS ORDERED: Witch Hazel Medicated Pads 100/Jar TOP PRN (19:31)
[2017-04-14] MEDS ORDERED: Lanolin 100% Cream 7 GM Tube TOP PRN (19:31)
[2017-04-14] MEDS: Docusate Sodium 100 MG Cap PO PRN (20:49)
[2017-04-14] MEDS: Ibuprofen 600 MG Tab PO PRN (20:50)
[2017-04-14] MEDS ORDERED: Bupivacaine 0.25% 10 ML SDV ONE (22:22)
[2017-04-15] MEDS: Ibuprofen 600 MG Tab PO PRN ×3 (06:07→18:59)
--- NOTE | 2017-04-15 07:54 | PCM.PNPP ---
- General Info Date of Service: 04/15/17 Functional Status: Reports: Pain Controlled - Review of Systems General: Reports: No Symptoms HEENT: Reports: No Symptoms Pulmonary: Reports: No Symptoms Cardiovascular: Reports: No Symptoms Gastrointestinal: Reports: No Symptoms Genitourinary: Reports: No Symptoms Musculoskeletal: Reports: No Symptoms Skin: Reports: No Symptoms Neurological: Reports: No Symptoms Psychiatric: Reports: No Symptoms - General Info Date of Service: 04/15/17 - Patient Data Vital Signs - Most Recent: Last Vital Signs Temp 36.6 C 04/15/17 05:22 Pulse 64 04/15/17 05:22 Resp 16 04/15/17 05:22 BP 106/70 04/15/17 05:22 Pulse Ox 98 04/15/17 05:22 Weight - Most Recent: 93.894 kg Lab Results - Last 24 Hours: Laboratory Results - last 24 hr 04/14/17 Range/Units 13:16 WBC 10.59 H (3.98-10.04) K/mm3 RBC 3.98 (3.98-5.22) M/mm3 Hgb 8.8 L (11.2-15.7) gm/L Hct 28.2 L (34.1-44.9) % MCV 70.9 L (79.4-94.8) fl MCH 22.1 L (25.6-32.2) pg MCHC 31.2 L (32.2-35.5) g/dl RDW Std Deviation 44.5 (36.4-46.3) fL Plt Count 324 (182-369) K/mm3 MPV 9.8 (9.4-12.3) fl Neut % (Auto) 81.6 H (34.0-71.1) % Lymph % (Auto) 10.7 L (19.3-51.7) % [place] % (Auto) 6.8 (4.7-12.5) % Eos % (Auto) 0.4 L (0.7-5.8) Baso % (Auto) 0.2 (0.1-1.2) % Neut # (Auto) 8.65 H (1.56-6.13) K/mm3 Lymph # (Auto) 1.13 L (1.18-3.74) K/mm3 [place] # (Auto) 0.72 H (0.24-0.36) K/mm3 Eos # (Auto) 0.04 (0.04-0.36) K/mm3 Baso # (Auto) 0.02 (0.01-0.08) K/mm3 Manual Slide Review Abnormal smear Med Orders - Current: Current Medications Benzocaine/Menthol (Dermoplast Pain Relief [place]) 0 gm TOP ASDIRECTED PRN PRN Reason: Perineal Comfort Measure Last Admin: 04/14/17 20:49 Dose: 1 applic Docusate Sodium (Colace) 100 mg PO BID PRN PRN Reason: Constipation Last Admin: 04/14/17 20:49 Dose: 100 mg Emollient Ointment (Lansinoh Hpa) 0 gm TOP ASDIRECTED PRN PRN Reason: Sore Nipples Ibuprofen (Motrin) 600 mg PO Q6H PRN PRN Reason: Mild pain or fever Last Admin: 04/15/17 06:07 Dose: 600 mg Witch Destiny (Tucks) 1 pad TOP ASDIRECTED PRN PRN Reason: Hemorrhoid pain Last Admin: 04/14/17 20:50 Dose: 1 applic Discontinued Medications Ephedrine Sulfate (Ephedrine Sulfate) 5 mg IVPUSH ASDIRECTED PRN PRN Reason: Hypotension Fentanyl (Sublimaze) 100 mcg EPIDUR Q3H PRN PRN Reason: Pain Last Admin: 04/14/17 15:19 Dose: 100 mcg Fentanyl/Bupivacaine HCl (Fentanyl/Bupivacaine/Ns 2 Mcg-0.125% 100 Ml) 100 ml EPIDUR ASDIRECTED [facility] Last Admin: 04/14/17 15:19 Dose: 100 ml Ampicillin Sodium 2 gm/ Sodium (Chloride) 100 mls @ 200 mls/hr IV ONETIME ONE Stop: 04/14/17 13:18 Last Admin: 04/14/17 13:00 Dose: 200 mls/hr Ampicillin Sodium 1 gm/ Sodium (Chloride) 100 mls @ 200 mls/hr IV Q4H [facility] Last Admin: 04/14/17 16:42 Dose: 200 mls/hr Lactated Ringer's (Ringers, Lactated) 1,000 mls @ 100 mls/hr IV ASDIRECTED [facility] Last Admin: 04/14/17 15:41 Dose: 100 mls/hr Oxytocin/Lactated Ringer's (Pitocin In Lr 10 Units/1,000 Ml) 10 unit in 1,000 mls @ 12 mls/hr IV TITRATE TANI; 2 MUNITS/MIN PRN Reason: Protocol Oxytocin/Lactated Ringer's (Pitocin In Lr 10 Units/1,000 Ml) 10 unit in 1,000 mls @ 500 mls/hr IV .CONTINUOUS TANI Last Admin: 04/14/17 16:43 Dose: 500 mls/hr Nalbuphine HCl (Nubain) 10 mg IVPUSH Q2H PRN PRN Reason: Pain (moderate 4-6) Ondansetron HCl (Zofran) 4 mg IVPUSH ONETIME PRN PRN Reason: Nausea/Vomiting Sodium Chloride (Saline Flush) 10 ml FLUSH ASDIRECTED PRN PRN Reason: Keep Vein Open - Infant Interaction Disposition, : at Bedside Support Person: - Recovery Exam Fundal Tone: Firm Fundal Level: 1 Fingerbreadths Above Umbilicus Fundal Placement: Midline Lochia Amount: Small Lochia Color: Rubra/Red - Exam General: Alert, Oriented HEENT: Pupils Equal Neck: Supple Lungs: Clear to Auscultation, Normal Respiratory Effort Cardiovascular: Regular Rate, Regular Rhythm GI/Abdominal Exam: Normal Bowel Sounds, Soft, Non-Tender, No Organomegaly, No Distention, No Abnormal Bruit, No Mass, Pelvis Stable Extremities: Normal Inspection, Normal Range of Motion, Non-Tender, No Pedal Edema, Normal Capillary Refill Neurological: No New Focal Deficit Psy/Mental Status: Alert, Normal Affect, Normal Mood - Problem List Review Problem List Initiated/Reviewed/Updated: Yes - My Orders Last 24 Hours: My Active Orders 04/14/17 12:49 Resuscitation Status Routine 04/14/17 19:31 Activity as Tolerated [RC] PER UNIT ROUTINE Vital Signs [RC] 04,12,20 Benzocaine/Menthol [Dermoplast Pain Relief [place]] See Dose Instructions TOP ASDIRECTED PRN Docusate Sodium [Colace] 100 mg PO BID PRN Ibuprofen [Motrin] 600 mg PO Q6H PRN Lanolin [Lansinoh HPA] See Dose Instructions TOP ASDIRECTED PRN Witch Destiny [Tucks] 1 pad TOP ASDIRECTED PRN Assess Lochia [WOMSER] Per Unit Routine Assess Uterine Involution [WOMSER] Per Unit Routine Breast Pump [WOMSER] Per Unit Routine Heat Therapy [OM.PC] PRN Medication Administration Instruction [OM.PC] Routine Perineal Care [OM.PC] Per Unit Routine Sitz Bath [OM.PC] Per Unit Routine 04/15/17 19:31 Heat Therapy [OM.PC] PRN - Assessment Assessment:: PPD1 s/p . Doing well Probable discharge tomorrow if not this evening. 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 - Plan Plan:: Doing well PPD1 No issues.
[2017-04-15] MEDS: Docusate Sodium 100 MG Cap PO PRN (11:49)
--- NOTE | 2017-04-15 13:16 | PCM48HPAN ---
Post Anesthesia Note - EVALUATION WITHIN 48HRS OF ANESTHETIC Vital Signs in Normal Range: Yes Patient Participated in Evaluation: Yes Respiratory Function Stable: Yes Airway Patent: Yes Cardiovascular Function Stable: Yes Hydration Status Stable: Yes Pain Control Satisfactory: Yes Nausea and Vomiting Control Satisfactory: Yes Mental Status Recovered: Yes Pulse Rate: 75 SaO2: 98 Resp Rate: 20 Temperature: 36.3 C Blood Pressure: 94/59
[2017-04-15] MEDS: Acetaminophen/HYDROcodone 325-5 MG Tab PO PRN (16:15)
[2017-04-15] MEDS ORDERED: Measles, Mumps & Rubella Vaccine 0.5 ML SDV SUBCUT ONE (20:03)
[2017-04-16] MEDS: Ibuprofen 600 MG Tab PO PRN (01:13)
[2017-04-16] MEDS: Docusate Sodium 100 MG Cap PO PRN (03:02)
[2017-04-16] MEDS: Acetaminophen/HYDROcodone 325-5 MG Tab PO PRN (03:02)
[2017-04-16 05:23] VITALS: BP 116/84
--- NOTE | 2017-04-16 08:08 | PCM.DCSUM1 ---
Discharge Summary - Discharge Data Discharge Date: 04/16/17 Discharge Disposition: Home, Self-Care 01 Condition: Good - Patient Instructions Diet: Usual Diet as Tolerated Activity: No Strenuous Activities Driving: May Drive Today Showering/Bathing: May Shower Notify Provider of: Fever, Increased Pain, Swelling and Redness, Drainage, Nausea and/or Vomiting - Discharge Plan Home Medications: Home Meds Acetaminophen/HYDROcodone [[place] 325-5 MG] 1 tab PO Q8H 08/28/16 [History] Cyclobenzaprine [Flexeril] 5 mg PO TID 08/28/16 [History] Doxylamine/Pyridoxine HCl [Diclegis Dr 10-10 mg Tablet] 1 each PO ASDIRECTED # 30 tablet. 08/28/16 [Rx] Ferrous Sulfate [Iron] 325 mg PO DAILY 08/28/16 [History] Gabapentin [Neurontin] 600 mg PO TID 08/28/16 [History] - Discharge Summary/Plan Comment DC Time >30 min.: No - General Info Date of Service: 04/16/17 Functional Status: Reports: Pain Controlled - Review of Systems General: Reports: No Symptoms HEENT: Reports: No Symptoms Pulmonary: Reports: No Symptoms Cardiovascular: Reports: No Symptoms Gastrointestinal: Reports: No Symptoms Genitourinary: Reports: No Symptoms Musculoskeletal: Reports: No Symptoms Skin: Reports: No Symptoms Neurological: Reports: No Symptoms Psychiatric: Reports: No Symptoms - Patient Data Vitals - Most Recent: Last Vital Signs Temp 36.4 C 04/16/17 03:23 Pulse 75 04/16/17 03:23 Resp 15 04/16/17 03:23 BP 116/84 04/16/17 03:23 Pulse Ox 99 04/16/17 03:23 Weight - Most Recent: 93.894 kg Med Orders - Current: Current Medications Hydrocodone Bitart/Acetaminophen ([place] 325-5 Mg) 1 tab PO Q6H PRN PRN Reason: Pain Last Admin: 04/16/17 03:02 Dose: 1 tab Benzocaine/Menthol (Dermoplast Pain Relief [place]) 0 gm TOP ASDIRECTED PRN PRN Reason: Perineal Comfort Measure Last Admin: 04/14/17 20:49 Dose: 1 applic Docusate Sodium (Colace) 100 mg PO BID PRN PRN Reason: Constipation Last Admin: 04/16/17 03:02 Dose: 100 mg Emollient Ointment (Lansinoh Hpa) 0 gm TOP ASDIRECTED PRN PRN Reason: Sore Nipples Ibuprofen (Motrin) 600 mg PO Q6H PRN PRN Reason: Mild pain or fever Last Admin: 04/16/17 01:13 Dose: 600 mg Witch Destiny (Tucks) 1 pad TOP ASDIRECTED PRN PRN Reason: Hemorrhoid pain Last Admin: 04/14/17 20:50 Dose: 1 applic Discontinued Medications Bupivacaine HCl (Sensorcaine-Mpf 0.25%) 10 ml .ROUTE .STK-MED ONE Stop: 04/14/17 22:23 Ephedrine Sulfate (Ephedrine Sulfate) 5 mg IVPUSH ASDIRECTED PRN PRN Reason: Hypotension Fentanyl (Sublimaze) 100 mcg EPIDUR Q3H PRN PRN Reason: Pain Last Admin: 04/14/17 15:19 Dose: 100 mcg Fentanyl/Bupivacaine HCl (Fentanyl/Bupivacaine/Ns 2 Mcg-0.125% 100 Ml) 100 ml EPIDUR ASDIRECTED TANI Last Admin: 04/14/17 15:19 Dose: 100 ml Ampicillin Sodium 2 gm/ Sodium (Chloride) 100 mls @ 200 mls/hr IV ONETIME ONE Stop: 04/14/17 13:18 Last Admin: 04/14/17 13:00 Dose: 200 mls/hr Ampicillin Sodium 1 gm/ Sodium (Chloride) 100 mls @ 200 mls/hr IV Q4H TANI Last Admin: 04/14/17 16:42 Dose: 200 mls/hr Lactated Ringer's (Ringers, Lactated) 1,000 mls @ 100 mls/hr IV ASDIRECTED TANI Last Admin: 04/14/17 15:41 Dose: 100 mls/hr Oxytocin/Lactated Ringer's (Pitocin In Lr 10 Units/1,000 Ml) 10 unit in 1,000 mls @ 12 mls/hr IV TITRATE TANI; 2 MUNITS/MIN PRN Reason: Protocol Oxytocin/Lactated Ringer's (Pitocin In Lr 10 Units/1,000 Ml) 10 unit in 1,000 mls @ 500 mls/hr IV .CONTINUOUS TANI Last Admin: 04/14/17 16:43 Dose: 500 mls/hr Measles/Mumps/Rubella Vaccine Live (M-M-R Ii Vaccine) 0.5 ml SUBCUT .ONCE ONE Stop: 04/15/17 20:04 Last Admin: 04/15/17 20:16 Dose: 0.5 ml Nalbuphine HCl (Nubain) 10 mg IVPUSH Q2H PRN PRN Reason: Pain (moderate 4-6) Ondansetron HCl (Zofran) 4 mg IVPUSH ONETIME PRN PRN Reason: Nausea/Vomiting Sodium Chloride (Saline Flush) 10 ml FLUSH ASDIRECTED PRN PRN Reason: Keep Vein Open - Exam General: Reports: Alert, Oriented HEENT: Reports: Pupils Equal, Pupils Reactive, EOMI, Mucous Membr. Moist/[place] Neck: Reports: Supple Lungs: Reports: Clear to Auscultation, Normal Respiratory Effort Cardiovascular: Reports: Regular Rate, Regular Rhythm GI/Abdominal Exam: Normal Bowel Sounds, Soft, Non-Tender, No Organomegaly, No Distention, No Abnormal Bruit, No Mass, Pelvis Stable Rectal (Female) Exam: Normal Exam, Normal Rectal Tone Back Exam: Reports: Normal Inspection, Full Range of Motion Extremities: Normal Inspection, Normal Range of Motion, Non-Tender, No Pedal Edema, Normal Capillary Refill Skin: Reports: Warm, Dry, Intact Wound/Incisions: Reports: Healing Well Neurological: Reports: No New Focal Deficit Psy/Mental Status: Reports: Alert, Normal Affect, Normal Mood *Q Meaningful Use (DIS) - VTE *Q VTE Criteria *Q: - Stroke *Q Stroke Criteria *Q: - AMI *Q AMI Criteria *Q:
== END 2017-04-16 10:25 | disposition home or self-care (01) | DRG 775 ==
LOC: JD.OBCHECK 12:26 → JD.OB 12:28 → JD.OBCHECK 12:30 → OBSVTOIN 17:57 → JD.OB 17:57
PROVIDERS: ADMIT Obstetrics & Gynecology; ATTEND Obstetrics & Gynecology
PROC: 10E0XZZ Delivery of Products of Conception, External Approach (ICD-10-PCS; principal; 2017-04-14)
PROC: 00HU33Z Insertion of Infusion Device into Spinal Canal, Percutaneous Approach (ICD-10-PCS; 2017-04-14)
PROC: 3E0R3BZ Introduction of Anesthetic Agent into Spinal Canal, Percutaneous Approach (ICD-10-PCS; 2017-04-14)
PROC: 3E0234Z Introduction of Serum, Toxoid and Vaccine into Muscle, Percutaneous Approach (ICD-10-PCS; 2017-04-16)
DX: O42.92 Full-term premature rupture of membranes, unspecified as to length of time between rupture and onset of labor (principal); Z37.0 Single live birth; Z3A.39 39 weeks gestation of pregnancy; O75.89 Other specified complications of labor and delivery; M06.9 Rheumatoid arthritis, unspecified; E61.1 Iron deficiency; Z87.891 Personal history of nicotine dependence; Z23 Encounter for immunization; O99.824 Streptococcus B carrier state complicating childbirth; O77.0 Labor and delivery complicated by meconium in amniotic fluid; Z79.899 Other long term (current) drug therapy
CPT/HCPCS: 01967; 36415; 51702; 59409; 85025; 90471; 90707; A9270-GY; J0290; J2590; J3010; J7030; J7120

== ENCOUNTER 2021-01-08 22:16 | Emergency (ER) | payer BC, OTHER ==
[2021-01-08 22:41] VITALS: BP 133/90; PULSE 101
[2021-01-08] MEDS ORDERED: Acetaminophen 325 MG Tab PO ONE (22:49)
[2021-01-08] MEDS ORDERED: Lactated Ringers 1,000 ML IV ONE (22:49)
[2021-01-08] MEDS ORDERED: Metoclopramide 10 MG/2 ML SDV IVPUSH ONE (22:49)
[2021-01-08] MEDS ORDERED: Ketorolac 15 MG/ML SDV IVPUSH ONE (22:49)
--- NOTE | 2021-01-08 22:54 | EDM.PDOC ---
ED HPI GENERAL MEDICAL PROBLEM - General Chief Complaint: Headache Stated Complaint: HEADACHE/NAUSEA Time Seen by Provider: 01/08/21 22:52 Source of Information: Reports: Patient History Limitations: Reports: No Limitations - History of Present Illness INITIAL COMMENTS - FREE TEXT/NARRATIVE: Patient is a 30-year-old female with no significant past medical history presenting with a chief complaint of headache. Headache started around 4:00 this morning. She states headache was gradual in onset and worsened throughout the day. She states she was driving from [place] today and headache continue to worsen so much that she had to stop her car. She reports headache on the right side is associated with light sensitivity. She states she used to have headaches along time ago but has not had one in a while. States his headache feels similarly. Took some [id number] sinus medication that she bought at a [facility] without improvement. 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: Musculoskeletal History: Reports: Back Pain, Chronic, RA Neurological History: Reports: Migraines Hematologic History: Reports: Iron Deficiency - Past Surgical History Musculoskeletal Surgical History: Reports: None Social & Family History - Family History Family Medical History: No Pertinent Family History - Caffeine Use Caffeine Use: Reports: Coffee, Tea ED ROS GENERAL - Review of Systems Review Of Systems: See Below Free Text/Narrative/Comment: In addition to that documented in the HPI above, the additional ROS was obtained: Constitutional: Denies fevers or chills Eyes: Denies vision changes ENMT: Denies sore throat CV: Denies chest pain Resp: Denies SOB GI: Denies vomiting or diarrhea : Denies painful urination MSK: Denies recent trauma Skin: Denies new rashes Neuro: Denies new numbness or tingling or weakness Endocrine: Denies unexpected weight loss Heme: Denies bleeding disorders - Physical Exam Exam: See Below Text/Narrative:: I have reviewed the triage vital signs Const: Well nourished, well developed, appears stated age Eyes: Pupils Equal and reactive to light bilaterally, no conjunctival injection HENT: No signs of trauma or swelling, Neck supple without meningismus CV: Regular Rate Rhythm, Warm, well-perfused extremities RESP: Unlabored respiratory effort GI: soft, non-tender, non-distended, no masses MSK: No gross deformities appreciated Skin: Warm, dry. 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 No pronator drift. Sensation and motor function of extremities grossly intact. Psych: Tearful but appropriate. Course - Vital Signs Last Recorded V/S: Last Vital Signs Temp 37.4 C 01/08/21 22:37 Pulse 101 H 01/08/21 22:37 Resp 20 01/08/21 22:37 BP 133/90 01/08/21 22:37 Pulse Ox 97 01/08/21 22:37 - Orders/Labs/Meds Meds: Medications Discontinued Medications Generic Name Dose Route Start Last Admin Trade Name Daveq PRN Reason Stop Dose Admin Acetaminophen 650 mg 01/08/21 22:49 01/08/21 23:19 Acetaminophen 325 Mg Tab PO 01/08/21 22:50 650 mg NOW ONE Administration Lactated Ringer's 1,000 mls @ 1,000 mls/hr 01/08/21 22:49 01/08/21 23:18 Ringers, Lactated IV 01/08/21 23:48 1,000 mls/hr .BOLUS ONE Administration Ketorolac Tromethamine 15 mg 01/08/21 22:49 01/08/21 23:19 Ketorolac 15 Mg/Ml Sdv IVPUSH 01/08/21 22:50 15 mg ONETIME ONE Administration Metoclopramide HCl 10 mg 01/08/21 22:49 01/08/21 23:19 Metoclopramide 10 Mg/2 Ml Sdv IVPUSH 01/08/21 22:50 10 mg ONETIME ONE Administration Prednisone 40 mg 01/09/21 23:56 Prednisone 20 Mg Tab PO 01/09/21 23:57 ONETIME ONE Prednisone 40 mg 01/09/21 00:08 01/09/21 00:17 Prednisone 20 Mg Tab PO 01/09/21 00:09 40 mg ONETIME ONE Administration Departure - Departure Time of Disposition: 07:01 Disposition: Home, Self-Care 01 Clinical Impression: Migraine - Discharge Information Instructions: General Headache Without Cause, [id number] Referrals: Christie Jolly GUN TESTER [Primary Care Provider] - Forms: ED Department Discharge Sepsis Event Note (ED) - Evaluation Sepsis Screening Result: No Definite Risk - Focused Exam Vital Signs: Vital Signs Temp Pulse Resp BP Pulse Ox 01/08/21 22:37 37.4 C 101 H 20 133/90 97 - Assessment/Plan Assessment:: Patient 30-year-old female presenting with headache. No evidence of subarachnoid hemorrhage, meningitis/thrombosis. Patient headache improved with treatment. Discharged with
[2021-01-09] MEDS ORDERED: predniSONE 20 MG Tab PO ONE ×2 (00:08→23:56)
== END 2021-01-09 00:55 | disposition home or self-care (01) ==
LOC: JD.ED 22:16
DX: G43.909 Migraine, unspecified, not intractable, without status migrainosus (principal)
CPT/HCPCS: 96374; 96375; 99283; A9270; J1885; J2765; J7120; J7512

== ENCOUNTER 2022-04-28 19:47 | Emergency (ER) | payer OTHER ==
[2022-04-28 20:47] VITALS: BP 117/76; PULSE 98
[2022-04-28] MEDS ORDERED: Ketorolac 60 MG/2 ML SDV IM ONE (21:08)
[2022-04-28] MEDS ORDERED: HYDROmorphone 1 MG/ML Syringe IM ONE (21:08)
[2022-04-28] MEDS ORDERED: Lidocaine 4% 1 each Patch TOP ONE (21:47)
[2022-04-28] MEDS ORDERED: Dexamethasone 10 MG/ML SDV IM ONE (21:47)
[2022-04-28] MEDS ORDERED: Dexamethasone 4 MG Tab PO ONE (22:02)
== END 2022-04-28 22:44 | disposition home or self-care (01) ==
LOC: JD.ED 19:47
DX: M54.50 Low back pain, unspecified (principal); Z79.899 Other long term (current) drug therapy; W00.9XXA Unspecified fall due to ice and snow, initial encounter
CPT/HCPCS: 96372; 99283; A9270; J1170; J1885; J8540; 99282